=== PATIENT | female | born 1955 | race Caucasian/White ===

== ENCOUNTER 2017-10-31 06:46 | Observation (INO) ==
[2017-10-31] MEDS ORDERED: NITROGLYCERIN 2% OINT 1 INCH/GM PACK TOP STA (07:08)
[2017-10-31] MEDS ORDERED: ENOXAPARIN 100 MG/ML SYRINGE SUBCUT STA (07:08)
[2017-10-31] MEDS ORDERED: ASPIRIN 325 MG TABLET PO STA (07:08)
[2017-10-31] MEDS ORDERED: METOPROLOL TARTRATE 5 MG/5 ML VIAL IV STA (07:08)
[2017-10-31] MEDS ORDERED: ONDANSETRON 4 MG/2 ML VIAL IV PRN (07:08)
[2017-10-31] MEDS ORDERED: NITROGLYCERIN SL 0.4 MG TABLET SL PRN (07:08)
[2017-10-31] MEDS ORDERED: ENOXAPARIN 100 MG/ML SYRINGE SUBCUT ONE (07:40)
[2017-10-31] MEDS ORDERED: METOPROLOL TARTRATE 5 MG/5 ML VIAL IV ONE (07:41)
[2017-10-31] MEDS ORDERED: ASPIRIN 325 MG TABLET ONE (07:41)
[2017-10-31 07:45] LABS: Basophils % 0.3 % (0.0-0.8); Eosinophils # 0.2 10*3/uL (0.0-0.87); Eosinophils % 2.4 % (0.00-10.9); Hematocrit 37.5 VOL% (35.7-47.0); Hemoglobin 13.1 GM/DL (12.0-16.0); Immature Granulocytes % 0.3 %; Immature Granulocytes Absolute 0.02 #; Lymphocytes # 1.4 10*3/uL (1.4-4.0); Lymphocytes % 21.9 % (21.3-54.2); Mean Corpuscular HGB Conc 34.9 GM/DL (32-36); Mean Corpuscular Hemoglobin 29 PG (27-34); Mean Corpuscular Volume 82.8 FL (87-102); Mean Platelet Volume 8.5 FL (9.6-12.0); Monocytes # 0.4 10*3/uL (0.11-0.8); Monocytes % 5.7 % (1.7-12.7); Neutrophils # 4.3 10*3/uL (1.4-7.4); Neutrophils % 69.4 % (38.7-73.9); Platelet Count 343 T/CUMM (130-400); Red Blood Count 4.53 MC/CUMM (3.8-5.5); Red Cell Distribution Width 12.2 % (9.3-17.3); White Blood Count 6.2 T/CUMM (4-12)
[2017-10-31 07:54] LABS: PT Patient Result 10.2 SECS; Partial Thromboplastin Time 25.9 SECS (0-40)
[2017-10-31 08:06] LABS: Albumin 3.8 G/DL (3.4-5.0); Bilirubin,Total 0.4 MG/DL (0.2-1.0); Osmolality,Calculated 279.3 MOS/KG (273-304); Potassium 3.6 MMOL/L (3.5-5.1); Total Protein 6.8 G/DL (6.4-8.3)
[2017-10-31] MEDS ORDERED: ALUM/MAG/SIMETH/LIDO VISC 1:1 30 ML BOTTLE PO STA (10:36)
[2017-10-31] MEDS ORDERED: MECLIZINE 25 MG TABLET PO PRN (11:23)
[2017-10-31] MEDS: ONDANSETRON 4 MG/2 ML VIAL IV PRN (17:56)
[2017-10-31 19:14] LABS: Apearance,Urine Slightly Hazy (Clear); Bilirubin,Urine Negative (Negative); Blood, Urine Small mg/dL (Negative); Glucose,Urine (UA) Negative (Negative); Ketones,Urine 5 mg/dL (Negative); Mucus,Urine Few /LPF (Occasional); Nitrite,Urine Negative (Negative); Protein,Urine Negative; RBC,Urine 10 /HPF (0-4); Squamous Epithelial Cell,Urine Occasional /HPF (0-10); Urine Color Yellow (Yellow); Urine Specific Gravity 1.044 (1.001-1.035); Urine Urobilinogen < 2.0 EU/DL (0.2-1.0); WBC,Urine 50 /HPF (0-6)
[2017-10-31] MEDS: METOPROLOL TARTRATE 50 MG TABLET PO SCH (21:01)
[2017-10-31] MEDS: FAMOTIDINE 20 MG TABLET PO SCH (21:01)
[2017-10-31] MEDS: TIMOLOL 0.5% OPH SOLN 5 ML BOTTLE BOTH EYES SCH (21:02)
[2017-10-31] MEDS: ACETAMINOPHEN 325 MG TABLET PO PRN (22:46)
[2017-11-01 04:35] LABS: Basophils % 0.3 % (0.0-0.8); Eosinophils # 0.1 10*3/uL (0.0-0.87); Eosinophils % 2.1 % (0.00-10.9); Hematocrit 36.1 VOL% (35.7-47.0); Hemoglobin 12.6 GM/DL (12.0-16.0); Immature Granulocytes % 0.5 %; Immature Granulocytes Absolute 0.03 #; Lymphocytes # 1.6 10*3/uL (1.4-4.0); Lymphocytes % 26.9 % (21.3-54.2); Mean Corpuscular HGB Conc 34.9 GM/DL (32-36); Mean Corpuscular Hemoglobin 29 PG (27-34); Mean Corpuscular Volume 82.2 FL (87-102); Mean Platelet Volume 8.5 FL (9.6-12.0); Monocytes # 0.5 10*3/uL (0.11-0.8); Monocytes % 7.8 % (1.7-12.7); Neutrophils # 3.8 10*3/uL (1.4-7.4); Neutrophils % 62.4 % (38.7-73.9); Platelet Count 297 T/CUMM (130-400); Red Blood Count 4.39 MC/CUMM (3.8-5.5); Red Cell Distribution Width 12.4 % (9.3-17.3); White Blood Count 6.1 T/CUMM (4-12)
[2017-11-01 05:08] LABS: Risk Ratio 4.49; VLDL CHOLESTEROL 28.6 MG/DL
[2017-11-01 05:14] LABS: Calcium 8.6 MG/DL (8.5-10.1); Osmolality,Calculated 281.1 MOS/KG (273-304); Potassium 3.6 MMOL/L (3.5-5.1); Thyroid Stimulating Hormone 1.64 uIU/ml (0.358-3.74)
[2017-11-01] MEDS: ACETAMINOPHEN 325 MG TABLET PO PRN (07:49)
[2017-11-01] MEDS ORDERED: REGADENOSON 0.4 MG/5 ML SYRINGE IV ONE (08:34)
[2017-11-01] MEDS ORDERED: LOSARTAN 25 MG TABLET PO SCH (09:00)
[2017-11-01] MEDS: ONDANSETRON 4 MG/2 ML VIAL IV PRN ×2 (09:22→19:41)
[2017-11-01] MEDS: METOPROLOL TARTRATE 50 MG TABLET PO SCH ×2 (09:23→21:17)
[2017-11-01] MEDS: PANTOPRAZOLE 40 MG TABLET PO SCH (09:23)
[2017-11-01] MEDS: LOSARTAN 50 MG TABLET PO SCH (09:23)
[2017-11-01] MEDS: TIMOLOL 0.5% OPH SOLN 5 ML BOTTLE BOTH EYES SCH ×2 (10:36→21:17)
[2017-11-01] MEDS: ASPIRIN EC 81 MG TABLET PO SCH (10:36)
[2017-11-01] MEDS: FAMOTIDINE 20 MG TABLET PO SCH (21:17)
[2017-11-02] MEDS ORDERED: PROPOFOL 200 MG/20 ML VIAL IV ONE (08:05)
[2017-11-02] MEDS ORDERED: LIDOCAINE 100 MG/5 ML SYRINGE ONE (08:05)
[2017-11-02] MEDS: ACETAMINOPHEN 325 MG TABLET PO PRN (09:26)
[2017-11-02] MEDS: TIMOLOL 0.5% OPH SOLN 5 ML BOTTLE BOTH EYES SCH ×2 (10:29→20:48)
[2017-11-02] MEDS: ASPIRIN EC 81 MG TABLET PO SCH (15:00)
[2017-11-02] MEDS: PANTOPRAZOLE 40 MG TABLET PO SCH (15:08)
[2017-11-02] MEDS: LOSARTAN 50 MG TABLET PO SCH (15:08)
[2017-11-02] MEDS: ATORVASTATIN 40 MG TABLET PO SCH (15:09)
[2017-11-02] MEDS: METOPROLOL TARTRATE 50 MG TABLET PO SCH ×2 (15:09→20:48)
[2017-11-02] MEDS: ONDANSETRON 4 MG/2 ML VIAL IV PRN (20:46)
[2017-11-02] MEDS: FAMOTIDINE 20 MG TABLET PO SCH (20:48)
[2017-11-03 07:41] VITALS: BP 120/83
[2017-11-03] MEDS: METOPROLOL TARTRATE 50 MG TABLET PO SCH (08:32)
[2017-11-03] MEDS: ASPIRIN EC 81 MG TABLET PO SCH (08:32)
[2017-11-03] MEDS: TIMOLOL 0.5% OPH SOLN 5 ML BOTTLE BOTH EYES SCH (08:32)
[2017-11-03] MEDS: PANTOPRAZOLE 40 MG TABLET PO SCH (08:32)
[2017-11-03] MEDS: ATORVASTATIN 40 MG TABLET PO SCH (08:32)
[2017-11-03] MEDS: LOSARTAN 50 MG TABLET PO SCH (08:32)
== END 2017-11-03 11:30 | disposition home or self-care (01) ==
LOC: N.ED 06:46 → N.EDINP 06:46 → SUATTDRO 09:38 → N.TELES 10:49
PROVIDERS: ADMIT Hospitalist

== ENCOUNTER 2018-01-14 21:12 | Observation (INO) ==
[2018-01-15] MEDS ORDERED: ONDANSETRON 4 MG/2 ML VIAL IV STA (00:27)
[2018-01-15] MEDS ORDERED: PANTOPRAZOLE 40 MG VIAL IV STA (00:29)
[2018-01-15 00:45] LABS: Basophils % 0.6 % (0.0-0.8); Eosinophils # 0.2 10*3/uL (0.0-0.87); Eosinophils % 2.5 % (0.00-10.9); Hematocrit 39.2 VOL% (35.7-47.0); Hemoglobin 13.3 GM/DL (12.0-16.0); Immature Granulocytes % 0.6 %; Immature Granulocytes Absolute 0.04 #; Lymphocytes # 1.3 10*3/uL (1.4-4.0); Lymphocytes % 18.4 % (21.3-54.2); Mean Corpuscular HGB Conc 33.9 GM/DL (32-36); Mean Corpuscular Hemoglobin 29 PG (27-34); Mean Corpuscular Volume 83.9 FL (87-102); Mean Platelet Volume 9.1 FL (9.6-12.0); Monocytes # 0.4 10*3/uL (0.11-0.8); Monocytes % 5.1 % (1.7-12.7); Neutrophils % 72.8 % (38.7-73.9); Platelet Count 408 T/CUMM (130-400); Red Blood Count 4.67 MC/CUMM (3.8-5.5); Red Cell Distribution Width 12.3 % (9.3-17.3); White Blood Count 6.9 T/CUMM (4-12)
[2018-01-15 01:22] LABS: Albumin 3.7 G/DL (3.4-5.0); Bilirubin,Total 0.4 MG/DL (0.2-1.0); Osmolality,Calculated 280.3 MOS/KG (273-304); Potassium 3.8 MMOL/L (3.5-5.1); Total Protein 7.4 G/DL (6.4-8.3)
[2018-01-15 05:28] LABS: Apearance,Urine CLEAR (Clear); Bilirubin,Urine Negative (Negative); Blood, Urine Negative (Negative); Glucose,Urine (UA) Negative (Negative); Ketones,Urine Negative (Negative); Nitrite,Urine Negative (Negative); Protein,Urine Negative; RBC,Urine <1 /HPF (0-4); Squamous Epithelial Cell,Urine Occasional /HPF (0-10); Urine Color Straw (Yellow); Urine Specific Gravity 1.005 (1.001-1.035); Urine Urobilinogen < 2.0 EU/DL (0.2-1.0); WBC,Urine 19 /HPF (0-6)
[2018-01-15] MEDS ORDERED: MORPHINE 4 MG/1 ML VIAL IV PRN (05:58)
[2018-01-15] MEDS ORDERED: ACETAMINOPHEN 325 MG TABLET PO PRN (05:58)
[2018-01-15] MEDS ORDERED: NITROGLYCERIN SL 0.4 MG TABLET SL STA (05:59)
[2018-01-15] MEDS ORDERED: MECLIZINE 25 MG TABLET PO PRN (06:00)
[2018-01-15] MEDS ORDERED: LORazepam 1 MG TABLET PO PRN (06:00)
[2018-01-15] MEDS ORDERED: ENOXAPARIN 40 MG/0.4 ML SYRINGE ONE (06:04)
[2018-01-15] MEDS ORDERED: NITROGLYCERIN SL 0.4 MG TABLET SL ONE (06:05)
[2018-01-15] MEDS: ENOXAPARIN 40 MG/0.4 ML SYRINGE SUBCUT SCH (06:26)
[2018-01-15] MEDS ORDERED: PANTOPRAZOLE 40 MG TABLET PO SCH ×2 (07:00→09:00)
[2018-01-15 08:18] LABS: Risk Ratio 4.44; Thyroid Stimulating Hormone 1.06 uIU/ml (0.358-3.74); VLDL CHOLESTEROL 27.6 MG/DL
[2018-01-15] MEDS ORDERED: LOSARTAN 25 MG TABLET PO SCH (09:00)
[2018-01-15] MEDS ORDERED: ATORVASTATIN 40 MG TABLET PO SCH (09:00)
[2018-01-15 09:18] LABS: Hepatitis A Ab IgM Quant 0.13 Index; Hepatitis A Ab IgM Result Negative (Negative); Hepatitis B Core IgM Quant 0.25 Index; Hepatitis B Core IgM Result Negative (Negative); Hepatitis B Surface Ag Quant < 0.10 Index; Hepatitis B Surface Ag Result Negative (Negative); Hepatitis C Virus Ab Quant 0.13 Index; Hepatitis C Virus Ab Result Negative (Negative)
[2018-01-15] MEDS: PANTOPRAZOLE 40 MG VIAL IV SCH ×2 (09:26→21:39)
[2018-01-15] MEDS: METOPROLOL TARTRATE 50 MG TABLET PO SCH ×2 (09:26→21:39)
[2018-01-15] MEDS: cefTRIAXone 1,000 MG in SYRINGE 1 EACH IV SCH (09:27)
[2018-01-15] MEDS: TIMOLOL 0.5% OPH SOLN 5 ML BOTTLE BOTH EYES SCH ×2 (09:27→21:39)
[2018-01-15 09:52] LABS: PT Patient Result 10.3 SECS; Partial Thromboplastin Time 28.3 SECS (0-40)
[2018-01-15 10:14] LABS: % Iron Saturation 22.1 % (18-50)
[2018-01-15] MEDS: LOSARTAN 25 MG TABLET PO SCH (12:45)
[2018-01-15] MEDS: ONDANSETRON 4 MG/2 ML VIAL IV PRN (13:40)
[2018-01-15] MEDS ORDERED: RANITIDINE 150 MG TABLET PO SCH (21:00)
[2018-01-16 06:01] LABS: Albumin 3.5 G/DL (3.4-5.0); Bilirubin,Total 0.9 MG/DL (0.2-1.0); Calcium 8.7 MG/DL (8.5-10.1); Osmolality,Calculated 279.4 MOS/KG (273-304); Potassium 4.2 MMOL/L (3.5-5.1); Total Protein 6.4 G/DL (6.4-8.3)
[2018-01-16 07:09] LABS: Basophils % 0.5 % (0.0-0.8); Eosinophils # 0.2 10*3/uL (0.0-0.87); Eosinophils % 2.8 % (0.00-10.9); Hematocrit 38.2 VOL% (35.7-47.0); Hemoglobin 12.8 GM/DL (12.0-16.0); Immature Granulocytes % 0.2 %; Immature Granulocytes Absolute 0.01 #; Lymphocytes # 1.7 10*3/uL (1.4-4.0); Mean Corpuscular HGB Conc 33.5 GM/DL (32-36); Mean Corpuscular Hemoglobin 28 PG (27-34); Mean Corpuscular Volume 84.3 FL (87-102); Mean Platelet Volume 8.5 FL (9.6-12.0); Monocytes # 0.4 10*3/uL (0.11-0.8); Monocytes % 6.7 % (1.7-12.7); Neutrophils # 4.1 10*3/uL (1.4-7.4); Neutrophils % 63.8 % (38.7-73.9); Platelet Count 340 T/CUMM (130-400); Red Blood Count 4.53 MC/CUMM (3.8-5.5); Red Cell Distribution Width 12.3 % (9.3-17.3); White Blood Count 6.4 T/CUMM (4-12)
[2018-01-16] MEDS: cefTRIAXone 1,000 MG in SYRINGE 1 EACH IV SCH (08:02)
[2018-01-16] MEDS: ENOXAPARIN 40 MG/0.4 ML SYRINGE SUBCUT SCH (08:02)
[2018-01-16] MEDS: METOPROLOL TARTRATE 50 MG TABLET PO SCH ×2 (08:02→20:33)
[2018-01-16] MEDS: PANTOPRAZOLE 40 MG VIAL IV SCH ×2 (08:03→20:34)
[2018-01-16] MEDS: TIMOLOL 0.5% OPH SOLN 5 ML BOTTLE BOTH EYES SCH ×2 (09:00→20:34)
[2018-01-16] MEDS: LOSARTAN 25 MG TABLET PO SCH (13:05)
[2018-01-16] MEDS: ONDANSETRON 4 MG/2 ML VIAL IV PRN (20:33)
[2018-01-17 07:34] LABS: Basophils % 0.3 % (0.0-0.8); Eosinophils # 0.2 10*3/uL (0.0-0.87); Eosinophils % 2.7 % (0.00-10.9); Hematocrit 37.1 VOL% (35.7-47.0); Hemoglobin 12.8 GM/DL (12.0-16.0); Immature Granulocytes % 0.5 %; Immature Granulocytes Absolute 0.03 #; Lymphocytes # 1.4 10*3/uL (1.4-4.0); Lymphocytes % 23.3 % (21.3-54.2); Mean Corpuscular HGB Conc 34.5 GM/DL (32-36); Mean Corpuscular Hemoglobin 28 PG (27-34); Mean Corpuscular Volume 82.3 FL (87-102); Mean Platelet Volume 8.5 FL (9.6-12.0); Monocytes # 0.4 10*3/uL (0.11-0.8); Monocytes % 6.3 % (1.7-12.7); Neutrophils % 66.9 % (38.7-73.9); Platelet Count 365 T/CUMM (130-400); Red Blood Count 4.51 MC/CUMM (3.8-5.5); Red Cell Distribution Width 12.2 % (9.3-17.3)
[2018-01-17] MEDS: cefTRIAXone 1,000 MG in SYRINGE 1 EACH IV SCH (07:59)
[2018-01-17] MEDS: PANTOPRAZOLE 40 MG VIAL IV SCH (08:00)
[2018-01-17 08:01] LABS: Osmolality,Calculated 278.4 MOS/KG (273-304); Potassium 4.2 MMOL/L (3.5-5.1)
[2018-01-17 08:04] LABS: Albumin 3.7 G/DL (3.4-5.0); Bilirubin,Direct 0.12 MG/DL (0.0-0.20); Bilirubin,Total 1.1 MG/DL (0.2-1.0); Total Protein 6.8 G/DL (6.4-8.3)
[2018-01-17] MEDS: TIMOLOL 0.5% OPH SOLN 5 ML BOTTLE BOTH EYES SCH (09:42)
[2018-01-17] MEDS ORDERED: LIDOCAINE 2% 5 ML VIAL ONE (11:11)
[2018-01-17] MEDS ORDERED: PROPOFOL 200 MG/20 ML VIAL IV ONE (11:11)
[2018-01-17] MEDS: METOPROLOL TARTRATE 50 MG TABLET PO SCH (12:23)
[2018-01-17] MEDS: LOSARTAN 25 MG TABLET PO SCH (13:58)
[2018-01-17 16:41] VITALS: BP 127/83
== END 2018-01-17 16:58 | disposition home or self-care (01) ==
LOC: N.EDINP 21:12 → N.ED 21:12 → SUATTDRO 01-15 05:54 → N.5E 01-15 06:45
PROVIDERS: ADMIT Internal Medicine; ATTEND Internal Medicine

== ENCOUNTER 2019-12-09 09:25 | Observation (INO) ==
[2019-12-09] MEDS ORDERED: ASPIRIN 325 MG TABLET PO STA (09:42)
[2019-12-09 09:50] LABS: Basophils % 0.4 % (0.0-0.8); Eosinophils # 0.1 10*3/uL (0.0-0.87); Eosinophils % 1.5 % (0.00-10.9); Hematocrit 43.7 VOL% (35.7-47.0); Hemoglobin 14.6 GM/DL (12.0-16.0); Immature Granulocytes % 0.4 %; Immature Granulocytes Absolute 0.04 #; Lymphocytes # 1.5 10*3/uL (1.4-4.0); Lymphocytes % 17.3 % (21.3-54.2); Mean Corpuscular HGB Conc 33.4 GM/DL (32-36); Mean Corpuscular Volume 84.7 FL (87-102); Mean Platelet Volume 8.7 FL (9.6-12.0); Monocytes % 4.9 % (1.7-12.7); Neutrophils % 75.5 % (38.7-73.9); Platelet Count 371 T/CUMM (130-400); Red Blood Count 5.16 MC/CUMM (3.8-5.5); Red Cell Distribution Width 12.2 % (9.3-17.3); White Blood Count 8.9 T/CUMM (4-12)
[2019-12-09 09:59] LABS: PT Patient Result 10.8 SECS (9.8-11.9)
[2019-12-09 10:08] LABS: Alanine Aminotransferase 31 U/L (13-56); Albumin 4.1 G/DL (3.4-5.0); Alkaline Phosphatase 86 U/L (45-117); Aspartate Amino Transferase 17 U/L (0-37); Bilirubin,Total < 0.39 MG/DL (0.2-1.0); Blood Urea Nitrogen 7 MG/DL (7-18); Calcium 9.1 MG/DL (8.5-10.1); Estimated Glom Filtration Rate 104 ML/MIN; Glucose 109 MG/DL (74-106); Osmolality,Calculated 275.5 MOS/KG (273-304); Total Protein 7.5 G/DL (6.4-8.3); Troponin I < 0.015 NG/ML (0.00-0.045)
[2019-12-09] MEDS ORDERED: DOCUSATE SODIUM 100 MG CAPSULE PO PRN (10:53)
[2019-12-09] MEDS ORDERED: ZALEPLON 5 MG CAPSULE PO PRN (10:53)
[2019-12-09] MEDS ORDERED: hydrALAZINE 20 MG/1 ML VIAL IV PRN (10:53)
[2019-12-09] MEDS ORDERED: GLUCAGON 1 MG VIAL IM PRN (10:53)
[2019-12-09] MEDS ORDERED: DEXTROSE 50% 25 GM/50 ML VIAL IV PRN (10:53)
[2019-12-09] MEDS ORDERED: ENOXAPARIN 40 MG/0.4 ML SYRINGE SUBCUT SCH (11:00)
[2019-12-09] MEDS ORDERED: LORazepam 1 MG TABLET PO PRN (11:18)
[2019-12-09] MEDS ORDERED: NITROGLYCERIN SL 0.4 MG TABLET SL PRN (11:22)
[2019-12-09] MEDS ORDERED: ATORVASTATIN 40 MG TABLET PO SCH (11:30)
[2019-12-09] MEDS: PANTOPRAZOLE 40 MG TABLET PO SCH (14:44)
[2019-12-09] MEDS: ONDANSETRON 4 MG/2 ML VIAL IV PRN ×2 (15:02→20:54)
[2019-12-09] MEDS: ACETAMINOPHEN 325 MG TABLET PO PRN ×2 (18:35→21:37)
[2019-12-09] MEDS: METOPROLOL TARTRATE 50 MG TABLET PO SCH (20:47)
[2019-12-09] MEDS ORDERED: TIMOLOL BOTH EYES SCH (21:00)
[2019-12-10 05:26] LABS: Basophils % 0.5 % (0.0-0.8); Eosinophils # 0.1 10*3/uL (0.0-0.87); Eosinophils % 2.1 % (0.00-10.9); Hematocrit 39.8 VOL% (35.7-47.0); Hemoglobin 13.4 GM/DL (12.0-16.0); Immature Granulocytes % 0.4 %; Immature Granulocytes Absolute 0.02 #; Lymphocytes % 34.3 % (21.3-54.2); Mean Corpuscular HGB Conc 33.7 GM/DL (32-36); Mean Corpuscular Volume 84.1 FL (87-102); Mean Platelet Volume 8.6 FL (9.6-12.0); Monocytes % 7.6 % (1.7-12.7); Neutrophils % 55.1 % (38.7-73.9); Platelet Count 291 T/CUMM (130-400); Red Blood Count 4.73 MC/CUMM (3.8-5.5); Red Cell Distribution Width 12.1 % (9.3-17.3); White Blood Count 5.7 T/CUMM (4-12)
[2019-12-10 05:56] LABS: Calcium 8.4 MG/DL (8.5-10.1); Osmolality,Calculated 276.4 MOS/KG (273-304); Risk Ratio 3.8; VLDL CHOLESTEROL 21.2 MG/DL
[2019-12-10] MEDS: ACETAMINOPHEN 325 MG TABLET PO PRN (08:21)
[2019-12-10] MEDS: PANTOPRAZOLE 40 MG TABLET PO SCH (08:21)
[2019-12-10] MEDS: METOPROLOL TARTRATE 50 MG TABLET PO SCH (08:21)
[2019-12-10] MEDS ORDERED: LOSARTAN 25 MG TABLET PO SCH ×2 (09:00)
[2019-12-10 10:02] VITALS: BP 141/74
== END 2019-12-10 12:05 | disposition home or self-care (01) ==
LOC: N.ED 09:25 → N.EDINP 09:25 → N.TELES 11:58
PROVIDERS: ADMIT Family Medicine; ATTEND Family Medicine

== ENCOUNTER 2022-05-22 14:11 | Observation (INO) ==
[2022-05-22 14:51] LABS: Basophils % 0.4 % (0.0-0.8); Eosinophils # 0.2 10*3/uL (0.0-0.87); Hematocrit 42.6 VOL% (35.7-47.0); Hemoglobin 14.5 GM/DL (12.0-16.0); Immature Granulocytes % 0.3 %; Immature Granulocytes Absolute 0.03 #; Lymphocytes # 1.4 10*3/uL (1.4-4.0); Lymphocytes % 15.4 % (21.3-54.2); Mean Platelet Volume 8.6 FL (9.6-12.0); Monocytes # 0.6 10*3/uL (0.11-0.8); Monocytes % 6.1 % (1.7-12.7); Neutrophils % 75.8 % (38.7-73.9); Platelet Count 353 T/CUMM (130-400); Red Blood Count 5.13 MC/CUMM (3.8-5.5); Red Cell Distribution Width 12.6 % (9.3-17.3)
[2022-05-22 15:01] LABS: INR 0.9; PT Patient Result 10.3 SECS (10.1-12.1)
[2022-05-22 15:17] LABS: Alanine Aminotransferase 56 U/L (13-56); Alkaline Phosphatase 98 U/L (45-117); Aspartate Amino Transferase 31 U/L (0-37); Bilirubin,Total < 0.39 MG/DL (0.20-1.00); Blood Urea Nitrogen 14 MG/DL (7-18); Calcium 8.9 MG/DL (8.5-10.1); Carbon Dioxide 26 MMOL/L (21-32); Chloride 111 MMOL/L (98-107); Glucose 117 MG/DL (74-106); Osmolality,Calculated 287.8 MOS/KG (273-304); Potassium 4.2 MMOL/L (3.5-5.1); Sodium 144 MMOL/L (136-145); Total Protein 7.1 G/DL (6.4-8.2)
[2022-05-22] MEDS ORDERED: ALBUTEROL/IPRATROPIUM 3 ML NEB RESP TX PRN (16:38)
[2022-05-22] MEDS ORDERED: DEXTROSE 10% 250 ML BAG IV PRN (16:38)
[2022-05-22] MEDS ORDERED: GLUCAGON 1 MG VIAL IM PRN (16:38)
[2022-05-22] MEDS ORDERED: MORPHINE 2 MG/1 ML SYRINGE IV PRN (16:38)
[2022-05-22] MEDS ORDERED: busPIRone 10 MG TABLET PO PRN (16:45)
[2022-05-22] MEDS ORDERED: ALUM/MAG/SIMETH/LIDO VISC 1:1 30 ML BOTTLE PO STA (16:48)
[2022-05-22] MEDS: PANTOPRAZOLE 40 MG TABLET PO SCH (18:11)
[2022-05-22] MEDS: lisinopriL 10 MG TABLET PO SCH (18:12)
[2022-05-22] MEDS: NITROGLYCERIN 2% OINT 1 INCH/GM PACK TOP SCH (18:12)
[2022-05-22] MEDS: ENOXAPARIN 40 MG/0.4 ML SYRINGE SUBCUT SCH (22:00)
[2022-05-22] MEDS: SIMVASTATIN 10 MG TABLET PO SCH (22:00)
[2022-05-22] MEDS: TIMOLOL 0.5% OPH SOLN 5 ML BOTTLE BOTH EYES SCH (22:15)
[2022-05-22] MEDS: ACETAMINOPHEN 325 MG TABLET PO PRN (22:22)
[2022-05-23] MEDS: NITROGLYCERIN 2% OINT 1 INCH/GM PACK TOP SCH ×4 (02:59→19:22)
[2022-05-23] MEDS: ACETAMINOPHEN 325 MG TABLET PO PRN ×2 (03:01→10:11)
[2022-05-23 05:51] LABS: Basophils % 0.5 % (0.0-0.8); Eosinophils # 0.1 10*3/uL (0.0-0.87); Eosinophils % 1.9 % (0.00-10.9); Hematocrit 39.5 VOL% (35.7-47.0); Hemoglobin 12.8 GM/DL (12.0-16.0); Immature Granulocytes % 0.3 %; Immature Granulocytes Absolute 0.02 #; Lymphocytes # 1.6 10*3/uL (1.4-4.0); Lymphocytes % 21.9 % (21.3-54.2); Mean Corpuscular HGB Conc 32.4 GM/DL (32-36); Mean Corpuscular Volume 86.4 FL (87-102); Mean Platelet Volume 8.6 FL (9.6-12.0); Monocytes # 0.5 10*3/uL (0.11-0.8); Monocytes % 7.1 % (1.7-12.7); Neutrophils % 68.3 % (38.7-73.9); Platelet Count 294 T/CUMM (130-400); Red Blood Count 4.57 MC/CUMM (3.8-5.5); Red Cell Distribution Width 12.8 % (9.3-17.3); White Blood Count 7.5 T/CUMM (4-12)
[2022-05-23 06:21] LABS: Albumin 3.2 G/DL (3.4-5.0); Bilirubin,Total 0.4 MG/DL (0.20-1.00); Calcium 9.1 MG/DL (8.5-10.1); Osmolality,Calculated 280.3 MOS/KG (273-304); Potassium 3.6 MMOL/L (3.5-5.1); Risk Ratio 3.69; Thyroid Stimulating Hormone 1.65 uIU/ml (0.358-3.74); Total Protein 6.7 G/DL (6.4-8.2)
[2022-05-23] MEDS: ONDANSETRON 4 MG/2 ML VIAL IV PRN ×2 (06:31→13:31)
[2022-05-23] MEDS: TIMOLOL 0.5% OPH SOLN 5 ML BOTTLE BOTH EYES SCH ×2 (09:26→20:10)
[2022-05-23] MEDS: PANTOPRAZOLE 40 MG TABLET PO SCH ×2 (09:26→20:15)
[2022-05-23] MEDS: NEBIVOLOL 10 MG TABLET PO SCH (09:26)
[2022-05-23] MEDS: lisinopriL 10 MG TABLET PO SCH (09:26)
[2022-05-23] MEDS: ENOXAPARIN 40 MG/0.4 ML SYRINGE SUBCUT SCH (20:10)
[2022-05-23] MEDS: SIMVASTATIN 10 MG TABLET PO SCH (20:10)
[2022-05-24] MEDS: NITROGLYCERIN 2% OINT 1 INCH/GM PACK TOP SCH ×5 (01:14→23:27)
[2022-05-24 06:38] LABS: Basophils % 0.3 % (0.0-0.8); Eosinophils # 0.2 10*3/uL (0.0-0.87); Eosinophils % 2.1 % (0.00-10.9); Hematocrit 39.7 VOL% (35.7-47.0); Immature Granulocytes % 0.3 %; Immature Granulocytes Absolute 0.02 #; Lymphocytes # 1.5 10*3/uL (1.4-4.0); Lymphocytes % 21.8 % (21.3-54.2); Mean Corpuscular HGB Conc 32.7 GM/DL (32-36); Mean Corpuscular Volume 87.1 FL (87-102); Mean Platelet Volume 8.8 FL (9.6-12.0); Monocytes # 0.4 10*3/uL (0.11-0.8); Monocytes % 6.1 % (1.7-12.7); Neutrophils % 69.4 % (38.7-73.9); Platelet Count 303 T/CUMM (130-400); Red Blood Count 4.56 MC/CUMM (3.8-5.5); Red Cell Distribution Width 12.8 % (9.3-17.3)
[2022-05-24 06:56] LABS: Calcium 8.7 MG/DL (8.5-10.1); Osmolality,Calculated 282.1 MOS/KG (273-304)
[2022-05-24] MEDS ORDERED: diphenhydrAMINE CAP 50 MG CAPSULE PO ONE ×2 (06:57→15:00)
[2022-05-24] MEDS ORDERED: MAGNESIUM SULF RIDER 2 GM/50 ML PREMIX IV PRN (06:57)
[2022-05-24] MEDS ORDERED: DIAZEPAM 5 MG TABLET PO ONE ×2 (06:57→15:00)
[2022-05-24] MEDS ORDERED: POTASSIUM CHLORIDE RIDER 10 MEQ/100 ML PREMIX IV PRN (06:57)
[2022-05-24] MEDS: NEBIVOLOL 10 MG TABLET PO SCH (09:33)
[2022-05-24] MEDS: TIMOLOL 0.5% OPH SOLN 5 ML BOTTLE BOTH EYES SCH ×2 (09:34→21:00)
[2022-05-24] MEDS: lisinopriL 10 MG TABLET PO SCH (09:34)
[2022-05-24] MEDS: ASPIRIN EC 81 MG TABLET PO SCH (09:34)
[2022-05-24] MEDS: PANTOPRAZOLE 40 MG TABLET PO SCH ×2 (09:34→21:00)
[2022-05-24] MEDS: SODIUM CHLORIDE 0.9% 1,000 ML IV SCH ×2 (12:20→21:00)
[2022-05-24] MEDS ORDERED: VERAPAMIL 5 MG/2 ML VIAL ONE (14:44)
[2022-05-24] MEDS ORDERED: HEPARIN/NACL 0.9% 2 UNITS/ML 2,000 UNIT/1,000 ML BAG IV ONE (14:44)
[2022-05-24] MEDS ORDERED: NITROGLYCERIN DRIP 50 MG/250 ML BOTTLE IV ONE (14:44)
[2022-05-24] MEDS ORDERED: fentaNYL 100 MCG/2 ML VIAL ONE (14:50)
[2022-05-24] MEDS ORDERED: MIDAZOLAM 2 MG/2 ML VIAL ONE (14:50)
[2022-05-24] MEDS ORDERED: HEPARIN 5,000 UNIT/1 ML VIAL ONE (14:59)
[2022-05-24] MEDS: ENOXAPARIN 40 MG/0.4 ML SYRINGE SUBCUT SCH (21:00)
[2022-05-24] MEDS: SIMVASTATIN 10 MG TABLET PO SCH (21:00)
[2022-05-24] MEDS: ONDANSETRON 4 MG/2 ML VIAL IV PRN (23:58)
[2022-05-25] MEDS: SODIUM CHLORIDE 0.9% 1,000 ML IV SCH ×2 (05:00→13:28)
[2022-05-25] MEDS: NITROGLYCERIN 2% OINT 1 INCH/GM PACK TOP SCH ×2 (05:07→12:00)
[2022-05-25 05:24] LABS: Basophils % 0.3 % (0.0-0.8); Eosinophils # 0.2 10*3/uL (0.0-0.87); Eosinophils % 2.1 % (0.00-10.9); Hematocrit 36.8 VOL% (35.7-47.0); Hemoglobin 11.7 GM/DL (12.0-16.0); Immature Granulocytes % 0.4 %; Immature Granulocytes Absolute 0.03 #; Lymphocytes # 1.7 10*3/uL (1.4-4.0); Lymphocytes % 21.7 % (21.3-54.2); Mean Corpuscular HGB Conc 31.8 GM/DL (32-36); Mean Corpuscular Volume 87.8 FL (87-102); Mean Platelet Volume 8.7 FL (9.6-12.0); Monocytes # 0.5 10*3/uL (0.11-0.8); Monocytes % 6.1 % (1.7-12.7); Neutrophils % 69.4 % (38.7-73.9); Platelet Count 282 T/CUMM (130-400); Red Blood Count 4.19 MC/CUMM (3.8-5.5); Red Cell Distribution Width 12.8 % (9.3-17.3); White Blood Count 7.7 T/CUMM (4-12)
[2022-05-25 05:41] LABS: Calcium 8.5 MG/DL (8.5-10.1); Osmolality,Calculated 285.8 MOS/KG (273-304); Potassium 4.3 MMOL/L (3.5-5.1)
[2022-05-25] MEDS: NEBIVOLOL 10 MG TABLET PO SCH (09:08)
[2022-05-25] MEDS: ASPIRIN EC 81 MG TABLET PO SCH (09:09)
[2022-05-25] MEDS: lisinopriL 10 MG TABLET PO SCH (09:09)
[2022-05-25] MEDS: PANTOPRAZOLE 40 MG TABLET PO SCH (09:09)
[2022-05-25] MEDS: TIMOLOL 0.5% OPH SOLN 5 ML BOTTLE BOTH EYES SCH (09:28)
[2022-05-25 12:27] VITALS: BP 172/93
== END 2022-05-25 15:23 | disposition home or self-care (01) ==
LOC: SUATTDRO → N.EDINP 14:11 → N.ED 14:11 → N.EDINP 17:25 → N.TELEN 17:43
PROVIDERS: ADMIT Internal Medicine; ATTEND Family Medicine
PROC: CLCCHCL (ICD-10-PCS; 2022-05-24 16:15)

== ENCOUNTER 2022-08-08 07:26 | Observation (INO) ==
[2022-08-08] MEDS ORDERED: PANTOPRAZOLE 40 MG VIAL IV STA (07:59)
[2022-08-08 08:41] LABS: Basophils % 0.3 % (0.0-0.8); Eosinophils # 0.4 10*3/uL (0.0-0.87); Hematocrit 41.7 VOL% (35.7-47.0); Immature Granulocytes % 0.3 %; Immature Granulocytes Absolute 0.02 #; Lymphocytes # 1.3 10*3/uL (1.4-4.0); Lymphocytes % 16.1 % (21.3-54.2); Mean Corpuscular HGB Conc 33.6 GM/DL (32-36); Mean Corpuscular Volume 83.4 FL (87-102); Mean Platelet Volume 8.6 FL (9.6-12.0); Monocytes # 0.4 10*3/uL (0.11-0.8); Monocytes % 4.6 % (1.7-12.7); Neutrophils % 73.7 % (38.7-73.9); Platelet Count 342 T/CUMM (130-400); Red Cell Distribution Width 12.7 % (9.3-17.3); White Blood Count 7.8 T/CUMM (4-12)
[2022-08-08 08:54] LABS: PT Patient Result 10.7 SECS (10.1-12.1)
[2022-08-08 08:59] LABS: Calcium 9.3 MG/DL (8.5-10.1); Potassium 3.8 MMOL/L (3.5-5.1)
[2022-08-08] MEDS ORDERED: hydrALAZINE 20 MG/1 ML VIAL IV PRN (13:48)
[2022-08-08] MEDS ORDERED: PANTOPRAZOLE INJ 200 MG in SODIUM CHLORIDE 0.9% 250 ML IV SCH (14:00)
[2022-08-08 15:36] LABS: Hematocrit 41.3 VOL% (35.7-47.0)
[2022-08-08] MEDS: DEXT 5% NACL 0.45% KCL 20 MEQ 20 MEQ/1,000 ML BAG IV SCH (20:25)
[2022-08-08 20:31] LABS: Hematocrit 40.8 VOL% (35.7-47.0); Hemoglobin 13.9 GM/DL (12.0-16.0)
[2022-08-09 02:14] LABS: Hematocrit 38.2 VOL% (35.7-47.0); Hemoglobin 12.9 GM/DL (12.0-16.0)
[2022-08-09] MEDS: DEXT 5% NACL 0.45% KCL 20 MEQ 20 MEQ/1,000 ML BAG IV SCH (04:25)
[2022-08-09 08:25] LABS: Hematocrit 40.1 VOL% (35.7-47.0); Hemoglobin 13.3 GM/DL (12.0-16.0)
[2022-08-09] MEDS ORDERED: busPIRone 10 MG TABLET PO PRN (09:54)
[2022-08-09] MEDS ORDERED: HYDROcodone/CHLORPHENIRAMINE ER 5 ML UDCUP PO PRN (09:55)
[2022-08-09] MEDS ORDERED: ALBUTEROL 2.5 MG/3 ML NEB RESP TX PRN (09:57)
[2022-08-09] MEDS: LACTATED RINGERS 1,000 ML IV SCH (11:12)
[2022-08-09] MEDS ORDERED: BISACODYL 5 MG TABLET PO ONE (15:00)
[2022-08-09] MEDS ORDERED: POLYETHYLENE GLYCOL POWDER 255 GM BOTTLE PO ONE (18:00)
[2022-08-09] MEDS ORDERED: lisinopriL 10 MG TABLET PO SCH (21:00)
[2022-08-09] MEDS ORDERED: SIMVASTATIN 10 MG TABLET PO SCH (21:00)
[2022-08-09] MEDS: TIMOLOL 0.5% OPH SOLN 5 ML BOTTLE BOTH EYES SCH (21:53)
[2022-08-09] MEDS: ONDANSETRON 4 MG/2 ML VIAL IV PRN (22:00)
[2022-08-10] MEDS ORDERED: POLYETHYLENE GLYCOL POWDER 255 GM BOTTLE PO ONE (05:00)
[2022-08-10] MEDS: ONDANSETRON 4 MG/2 ML VIAL IV PRN (05:06)
[2022-08-10 05:10] LABS: PT Patient Result 11.4 SECS (10.1-12.1)
[2022-08-10] MEDS: LACTATED RINGERS 1,000 ML IV SCH ×2 (05:25→13:07)
[2022-08-10 07:48] LABS: Hematocrit 40.6 VOL% (35.7-47.0); Hemoglobin 13.3 GM/DL (12.0-16.0)
[2022-08-10] MEDS ORDERED: LACTATED RINGERS 1,000 ML IV SCH (08:00)
[2022-08-10] MEDS: TIMOLOL 0.5% OPH SOLN 5 ML BOTTLE BOTH EYES SCH (08:26)
[2022-08-10] MEDS ORDERED: PANTOPRAZOLE 40 MG VIAL IV SCH (09:00)
[2022-08-10] MEDS ORDERED: NEBIVOLOL 10 MG TABLET PO SCH (09:00)
[2022-08-10] MEDS ORDERED: propofoL 200 MG/20 ML VIAL IV ONE ×2 (12:48→13:03)
[2022-08-10] MEDS ORDERED: LIDOCAINE 2% 5 ML VIAL ONE (12:48)
[2022-08-10 16:10] VITALS: BP 129/83
== END 2022-08-10 17:51 | disposition home or self-care (01) ==
LOC: N.ED 07:26 → N.2W 07:26 → SUATTDRO 13:42 → N.2W 14:44
PROVIDERS: ADMIT Phlebology; ATTEND Internal Medicine